=== PATIENT | female | born 1940 | race Two or more races ===

== ENCOUNTER → 2017-03-18 | Outpatient (CLI) | payer MEDICARE, MEDICAID ==
--- NOTE | 2017-03-18 13:49 | Diagnostic Imaging Report ---
Indication: Pain 3 views of the left knee were obtained. Findings: There is evidence of a joint effusion with distention and opacification of the suprapatellar region. There is moderate to severe osteoarthritis characterized by joint space narrowing and osteophyte formation. There is no acute fracture identified. Extensive vascular calcifications are noted. Chondrocalcinosis noted. Impression: No acute injury identified Moderate to severe osteoarthritis Joint effusion Vascular disease
== END | disposition home or self-care (01) ==
LOC: RAD 13:11
DX: M25.562 Pain in left knee (principal); M17.12 Unilateral primary osteoarthritis, left knee; I99.9 Unspecified disorder of circulatory system; M25.462 Effusion, left knee

== ENCOUNTER 2017-10-04 08:47 | Outpatient (CLI) | payer MEDICARE, MEDICAID ==
[2017-10-04] MEDS ORDERED: METOPROLOL SUCC25 MG ORAL (10:05)
[2017-10-04] MEDS ORDERED: AMLODIPINE BESY10 MG ORAL (10:05)
[2017-10-04] MEDS ORDERED: NORCO 5-325 TA1 EAC1 ORAL (10:05)
[2017-10-04] MEDS ORDERED: VITAMIN C500 M1 ORAL (10:05)
[2017-10-04] MEDS ORDERED: ALLOPURINOL300 M1 ORAL (10:05)
[2017-10-04] MEDS ORDERED: TYLENOL EXTRA500 MG ORAL (10:05)
[2017-10-04] MEDS ORDERED: XARELTO10 MG ORAL (10:05)
[2017-10-04] MEDS ORDERED: D3-5050000 UNIT PO (10:05)
[2017-10-04] MEDS ORDERED: JANUMET 50-1,01 EACH ORAL (10:05)
[2017-10-04] MEDS ORDERED: CALCIUM600 M1 PO (10:05)
[2017-10-04] MEDS ORDERED: ANASTROZOLE1 MG PO (10:05)
[2017-10-04] MEDS ORDERED: BENAZEPRIL HCL40 MG ORAL (10:05)
--- NOTE | 2017-10-04 10:05 | GI Initial Consult Note ---
Santacruz,Camilla Cheng N.PFredis 10/04/17 1005: History of Present Illness General Date patient seen: Oct 04, 2017 Time patient seen: 10:00 Referring physician: ZUNILDA Reason for Consultation: RECTAL BLEED Present Illness HPI Pleasant 76 year old female patient referred by Dr. Hodge BIB by son for evaluation of rectal bleeding. She presents today with c/o tinges of bright red blood after wiping herself, believe it may possibly be hemorrhoidal. In addition, the patient has frequent urination throughout the day. Denies any abdominal pain. Denies any unintentional weight loss or changes in dietary habits. Patient uses walker and is fall risk. Unsure if she's had a colonoscopy in the past. Home Meds Reported Medications Acetaminophen* (TYLENOL EXTRA STRENGTH*) 500 Mg Tablet, 500 MG ORAL Q6H Y, TAB 0 Refills 10/04/17 Hydrocodone Bit/Acetaminophen 5-325* (NORCO 5-325 TABLET*) 1 Each Tablet, 1 TAB ORAL Q4H Y, TAB 10/04/17 Ascorbic Acid* (VITAMIN C*) 500 Mg Tablet, 500 MG ORAL DAILY, #30 TAB 0 Refills 10/04/17 Cholecalciferol (Vitamin D3) (D3-50) 50,000 Unit Capsule, 32115 UNIT PO, CAP 10/04/17 Calcium Carbonate (CALCIUM) 600 Mg Tablet, 600 MG PO, TAB 10/04/17 Allopurinol* (ALLOPURINOL*) 300 Mg Tablet, 300 MG ORAL DAILY, TAB 10/04/17 Rivaroxaban (XARELTO*) 10 Mg Tablet, 10 MG ORAL DAILY, #30 TAB 0 Refills 10/04/17 Metoprolol Succinate* (METOPROLOL SUCCINATE*) 25 Mg Tab.er.24h, 25 MG ORAL DAILY , TAB 10/04/17 Benazepril Hcl* (BENAZEPRIL HCL*) 40 Mg Tablet, 40 MG ORAL DAILY, TAB 10/04/17 Amlodipine Besylate* (AMLODIPINE BESYLATE*) 10 Mg Tablet, 10 MG ORAL DAILY, TAB 10/04/17 Sitagliptin Phos/Metformin Hcl (JANUMET 50-1,000 MG TABLET) 1 Each Tablet, 1 TAB ORAL TWICE A DAY, TAB 10/04/17 Anastrozole* (ARIMIDEX*) 1 Mg Tablet, 1 MG PO DAILY, TAB 10/04/17 Med list reviewed/reconciled: Yes Allergies: Coded Allergies: PENICILLINS (Verified Allergy, Unknown, 01/10/11) Patient History History Provided By: Patient, Family Member PMH Narrative DM Hx of R breast CA with mastectomy HTN GOUT ?Lung mass with biopsy ?DVT Pertinent Family History: none Social History: Reports: other - coffee weekly, Denies: smoking, alcohol use, drug use Review of Systems All Other Systems: negative except mentioned in HPI Physical Exam T 98.3 BP 127/63 P 66 96 RA Sp02 EP Interpretation: reviewed, normal General Appearance: well appearing, no apparent distress, alert, thin Head: normocephalic EENT: PERRL/EOMI, normal ENT inspection Neck: supple Respiratory: normal breath sounds, no respiratory distress Cardiovascular: normal rate Gastrointestinal: normal inspection, non tender, soft, normal bowel sounds, non -distended Rectal: deferred Genitourinary: no CVA tenderness Musculoskeletal: normal inspection, back normal, other - general weakness Neurologic: normal inspection, alert, oriented x3, responsive Psychiatric: normal inspection, judgement/insight normal, memory normal Skin: normal inspection, normal color, no rash, warm/dry, palpation normal, well hydrated Lymphatic: normal inspection, no adenopathy GI: Plan Problems: (1) Colonoscopy planned (2) Bleeding hemorrhoid (3) Diabetes mellitus (4) HX: breast cancer (5) HTN (hypertension) Plan Colonoscopy scheduled 11/24/17. - CLD & (Nulytely/Suprep/Movi-Prep) prep instructions given and acknowledged by patient. - NPO @ MN day prior procedure explained. Rectal exam performed >> external hemorrhoids. decrease in rectal tone. cont anusol HC prn Seen with Dr. Sanders. Thank you for this patient referral. ARIAN SANDERS 10/04/17 1140: History of Present Illness Present Illness Home Meds Reported Medications Acetaminophen* (TYLENOL EXTRA STRENGTH*) 500 Mg Tablet, 500 MG ORAL Q6H Y, TAB 0 Refills 10/04/17 Hydrocodone Bit/Acetaminophen 5-325* (NORCO 5-325 TABLET*) 1 Each Tablet, 1 TAB ORAL Q4H Y, TAB 10/04/17 Ascorbic Acid* (VITAMIN C*) 500 Mg Tablet, 500 MG ORAL DAILY, #30 TAB 0 Refills 10/04/17 Cholecalciferol (Vitamin D3) (D3-50) 50,000 Unit Capsule, 03048 UNIT PO, CAP 10/04/17 Calcium Carbonate (CALCIUM) 600 Mg Tablet, 600 MG PO, TAB 10/04/17 Allopurinol* (ALLOPURINOL*) 300 Mg Tablet, 300 MG ORAL DAILY, TAB 10/04/17 Rivaroxaban (XARELTO*) 10 Mg Tablet, 10 MG ORAL DAILY, #30 TAB 0 Refills 10/04/17 Metoprolol Succinate* (METOPROLOL SUCCINATE*) 25 Mg Tab.er.24h, 25 MG ORAL DAILY , TAB 10/04/17 Benazepril Hcl* (BENAZEPRIL HCL*) 40 Mg Tablet, 40 MG ORAL DAILY, TAB 10/04/17 Amlodipine Besylate* (AMLODIPINE BESYLATE*) 10 Mg Tablet, 10 MG ORAL DAILY, TAB 10/04/17 Sitagliptin Phos/Metformin Hcl (JANUMET 50-1,000 MG TABLET) 1 Each Tablet, 1 TAB ORAL TWICE A DAY, TAB 10/04/17 Anastrozole* (ARIMIDEX*) 1 Mg Tablet, 1 MG PO DAILY, TAB 10/04/17 Allergies: Coded Allergies: PENICILLINS (Verified Allergy, Unknown, 01/10/11) GI: Plan Plan The patient was seen and examined at bedside and all new and available data was reviewed in the patients chart. I agree with the above findings, impression and plan. (Patient seen earlier today. Signature stamp does not reflect patient encounter time.). - MD [facility] Cheng Yañez Oct 04, 2017 10:05 ARIAN SANDERS Oct 04, 2017 11:40
[2017-10-04 11:35] VITALS: BP 127/63
== END 2017-10-04 09:30 | disposition home or self-care (01) ==
LOC: PAN 08:47
DX: K64.9 Unspecified hemorrhoids (principal); Z88.0 Allergy status to penicillin; E11.9 Type 2 diabetes mellitus without complications; Z85.3 Personal history of malignant neoplasm of breast; Z90.11 Acquired absence of right breast and nipple; I10 Essential (primary) hypertension
CPT/HCPCS: 99202

== ENCOUNTER 2017-10-24 08:15 | Day surgery (SDC) | payer MEDICARE, MEDICAID ==
[~2017-10-24] VITALS: Ht 152.4 cm; Wt 54.0 kg
[2017-10-24] VITALS (7 sets, daily range): BP systolic 102–123; BP diastolic 46–64
[~2017-10-24 08:15] MED LIST: ALLOPURINOL300 M1 ORAL; AMLODIPINE BESY10 MG ORAL; ANASTROZOLE1 MG PO; BENAZEPRIL HCL40 MG ORAL; CALCIUM600 M1 PO; D3-5050000 UNIT PO; JANUMET 50-1,01 EACH ORAL; METOPROLOL SUCC25 MG ORAL; NORCO 5-325 TA1 EAC1 ORAL; TYLENOL EXTRA500 MG ORAL; VITAMIN C500 M1 ORAL; XARELTO10 MG ORAL
--- NOTE | 2017-10-24 08:50 | Pre-Procedure Note/Attestation ---
Pre-Procedure Note/Attestation Complete Prior to Procedure Planned Procedure: not applicable Procedure Narrative: colonoscopy Indications for Procedure Pre-Operative Diagnosis: rectal bleed Attestation I attest that I discussed the nature of the procedure; its benefits; risks and complications; and alternatives (and the risks and benefits of such alternatives ), prior to the procedure, with the patient (or the patient's legal business development representative). I attest that, if there was a reasonable possibility of needing a blood transfusion, the patient (or the patient's legal business development representative) was given the [facility] standardized written summary, pursuant to the Mariano Christine Blood Safety Act ([place] Health and Safety Code # 1645, as amended). I attest that I re-evaluated the patient just prior to the surgery and that there has been no change in the patient's H&P, except as documented below: ARIAN SANDERS Oct 24, 2017 08:50
--- NOTE | 2017-10-24 08:50 | Short Stay Surgery H&P ---
History of Present Illness History of Present Illness Chief Complaint see recent consult HPI Ziyad Thacker is a 76 year old female who was admitted on for Rectal Bleeding Patient History Allergies: Coded Allergies: PENICILLINS (Verified Allergy, Unknown, 01/10/11) PAST MEDICAL HISTORY: Past Surgeries: Social History: Medication History Scheduled Allopurinol* (Allopurinol*), 300 MG ORAL DAILY, (Reported) Amlodipine Besylate* (Amlodipine Besylate*), 10 MG ORAL DAILY, (Reported) Anastrozole* (Arimidex*), 1 MG PO DAILY, (Reported) Ascorbic Acid* (Vitamin C*), 500 MG ORAL DAILY, (Reported) Benazepril Hcl* (Benazepril Hcl*), 40 MG ORAL DAILY, (Reported) Metoprolol Succinate* (Metoprolol Succinate*), 25 MG ORAL DAILY, (Reported) Rivaroxaban (Xarelto*), 15 MG ORAL DAILY, (Reported) Sitagliptin Phos/Metformin Hcl (Janumet 50-1,000 Mg Tablet), 1 TAB ORAL TWICE A DAY, (Reported) Scheduled PRN Acetaminophen* (Tylenol Extra Strength*), 500 MG ORAL Q6H PRN, (Reported) Hydrocodone Bit/Acetaminophen 5-325* ([place] 5-325 Tablet*), 1 TAB ORAL Q4H PRN, (Reported) Miscellaneous Medications Calcium Carbonate (Calcium), 600 MG PO, (Reported) Cholecalciferol (Vitamin D3) (D3-50), 50,000 UNIT PO, (Reported) Plan Attestation Are the patient's medical conditions optimized for surgery? ARIAN SANDERS Oct 24, 2017 08:50
[2017-10-24] MEDS ORDERED: Lidocaine 1% MPF 10mg/ml 5ml ONE (10:00)
[2017-10-24] MEDS ORDERED: Propofol 200mg/20ml IV ONE (10:00)
--- NOTE | 2017-10-24 10:26 | Anethesia Preoperative Eval ---
Anesthesia Pre-op PMH/ROS General Date of Evaluation: Oct 24, 2017 Time of Evaluation: 10:12 Anesthesiologist: daya ASA Score: ASA 3 Mallampati Score Class I : Soft palate, uvula, fauces, pillars visible Class II: Soft palate, uvula, fauces visible Class III: Soft palate, base of uvula visible Class IV: Only hard plate visible Mallampati Classification: Class II Surgeon: franky Diagnosis: rectal bleed Surgical Procedure: colonoscopy Anesthesia History: none Social History: alcohol use Family History: no anesthesia problems Allergies: Coded Allergies: PENICILLINS (Verified Allergy, Unknown, 01/10/11) Medications: see eMAR Past Medical History Cardiovascular: Reports: HTN, arrhythmia Gastrointestinal/Genitourinary: Reports: other - rectal bleed Endocrine: Reports: DM Hematology/Immune: Reports: other - breast cancer Musculoskeletal/Integumentary: Reports: other - gout Anesthesia Pre-op Phys. Exam Physician Exam Last Vital Signs Date Time Temp Pulse Resp B/P (MAP) Pulse Ox O2 Delivery O2 Flow Rate FiO2 10/24/17 09:43 97.6 73 18 122/58 96 Room Air Constitutional: NAD Neurologic: CN 2-12 intact Cardiovascular: other - irreg irreg Respiratory: CTA Gastrointestinal: S/NT/ND Airway Exam Mallampati Score: Class II MO: full Neck: supple TMD: 2fb ROM: limited Teeth: missing Dentures: upper, lower Anesthesia Pre-op A/P Studies Pre-op Studies: EKG - a-fib, lad lbbb Risk Assessment & Plan Assessment: asa3 Plan: mac Status Change Before Surgery: No Pre-Antibiotics Drug: MOSHE Gay Oct 24, 2017 10:26
[2017-10-24] MEDS ORDERED: fentaNYL 100 mcg/2 mL IV PRN (10:30)
[2017-10-24] MEDS ORDERED: DiphenhydrAMINE 50mg/ml Inj IVP PRN (10:30)
[2017-10-24] MEDS ORDERED: Midazolam 2mg/2ml Inj IVP PRN (10:30)
[2017-10-24] MEDS ORDERED: Atropine Inj 1mg/10ml Syr IV PRN (10:30)
--- NOTE | 2017-10-24 10:49 | Endoscopy Procedure Note ---
Endoscopy Procedure Note Indication for Procedure: diarrhea Procedures Performed: colonoscopy Operative Findings/Diagnosis: hemorrhoids Specimen: yes Anesthesiologist: giuliana Anesthesia: MAC Implant(s) used?: No 50 yrs or older w/o bx or poly: No 10yrs. F/U not recommended: Yes If not recommended, why?: Above average risk 10 yrs. F/U needed: Yes 18 years or older w/prev. colo: No ARIAN SANDERS Oct 24, 2017 10:49
--- NOTE | 2017-10-24 11:54 | Immediate Post-Op Evaluation ---
Immediate Post-Op Evalulation Immediate Post-Op Evalulation Procedure: colonoscopy Date of Evaluation: Oct 24, 2017 Time of Evaluation: 11:06 IV Fluids: 250ml 0.9ns Blood Products: none Estimated Blood Loss: negligible Blood Pressure Systolic: 105 Blood Pressure Diastolic: 46 Pulse Rate: 60 Respiratory Rate: 18 O2 Sat by Pulse Oximetry: 100 Temperature (Fahrenheit): 97.2 Pain Score (1-10): 0 Nausea: No Vomiting: No Complications none Patient Status: awake, reacts, patent Hydration Status: adequate Drug: MOSHE Gay Oct 24, 2017 11:54
--- NOTE | 2017-10-24 11:55 | 48 Hour Post Anesthesia Eval ---
Post Anesthesia Evaluation Procedure: colonoscopy Date of Evaluation: Oct 24, 2017 Time of Evaluation: 11:08 Blood Pressure Systolic: 111 0: 50 Pulse Rate: 66 Respiratory Rate: 18 Temperature (Fahrenheit): 97.2 O2 Sat by Pulse Oximetry: 99 Airway: patent Nausea: No Vomiting: No Pain Intensity: 0 Hydration Status: adequate Cardiopulmonary Status: stable Mental Status/LOC: patient returned to baseline Post-Anesthesia Complications: none Follow-up care needed: N/A MOSHE SALAZAR Oct 24, 2017 11:55
--- NOTE | 2017-10-24 15:30 | Procedure Note ---
DATE OF PROCEDURE: 10/24/2017 SURGEON: Avelino Tovar M.D. PROCEDURE: Colonoscopy with biopsy. ANESTHESIOLOGIST: Sarahi Hanson M.D. INSTRUMENT: Olympus adult flexible colonoscope. INDICATION: Diarrhea. REASON FOR PROCEDURE: The procedure, risks, benefits, and possible consequences, including hemorrhage, aspiration, perforation and infection, and alternative treatments, were explained to the patient/legal guardian by Dr. Avelino Tovar and the patient/legal guardian understood and accepted these risks. DESCRIPTION OF PROCEDURE: After informed consent was obtained and the patient was adequately sedated, first rectal exam was performed, which showed positive for internal hemorrhoids. Then, the scope was advanced from the rectum into the cecum and then subsequently into the terminal ileum. Quality of prep was good. The colonic examination was grossly within normal limit. Biopsy from the TI, right colon, and left colon were obtained for evaluation of diarrhea. Retroflexion of rectum showed evidence of internal hemorrhoids. SUMMARY OF FINDINGS: 1. Normal colonoscopy examination except for internal hemorrhoids. 2. Status post biopsy of TI and right and left colon. RECOMMENDATIONS: Follow up biopsy results and treat accordingly. Avelino Tovar M.D. DR: DEJUAN JOB#: [id number] CC:
== END 2017-10-24 12:25 | disposition home or self-care (01) ==
LOC: GAS 08:15
DX: K64.8 Other hemorrhoids (principal); K52.831 Collagenous colitis; Z88.0 Allergy status to penicillin; I10 Essential (primary) hypertension; E11.9 Type 2 diabetes mellitus without complications; Z85.3 Personal history of malignant neoplasm of breast; I48.91 Unspecified atrial fibrillation; I44.7 Left bundle-branch block, unspecified
CPT/HCPCS: 45380; 82962; 93005; J2704; 94003; 94150

== ENCOUNTER 2017-11-10 13:20 | Outpatient (CLI) | payer MEDICARE, MEDICAID ==
--- NOTE | 2017-11-10 16:18 | GI Progress Note ---
Assessment/Plan Problems: (1) Colonoscopy planned SNOMED: 127379288 (2) HTN (hypertension) ICD Codes: I10 - Essential (primary) hypertension SNOMED: 47137481 (3) Diabetes mellitus ICD Codes: E11.9 - Type 2 diabetes mellitus without complications SNOMED: 64269546 (4) Bleeding hemorrhoid ICD Codes: K64.9 - Unspecified hemorrhoids SNOMED: 03661219 (5) Colitis ICD Codes: K52.9 - Noninfective gastroenteritis and colitis, unspecified SNOMED: 95711325 Status: stable Status Narrative Seen with Dr. Tovar. Assessment/Plan DATE OF PROCEDURE: 10/24/2017 SURGEON: Avelino Tovar M.D. PROCEDURE: Colonoscopy with biopsy. SUMMARY OF FINDINGS reviewed with patient: 1. Normal colonoscopy examination except for internal hemorrhoids. 2. Status post biopsy of TI and right and left colon. RECOMMENDATIONS: Follow up biopsy results and treat accordingly >> R colon colitis Rx Entocort 9mg daily RTC x 8 weeks Subjective Subjective continues to have diarrhea colonoscopy review Objective T 98.4 BP 132/60 P 79 98 RA General Appearance: WD/WN, no apparent distress, alert Cardiovascular: normal rate Respiratory/Chest: normal breath sounds, no respiratory distress Abdominal Exam: normal bowel sounds, non tender, soft Extremities: normal range of motion, non-tender Camilla Santacruz N.P. Nov 10, 2017 16:18
== END 2017-11-10 13:55 | disposition home or self-care (01) ==
LOC: PAN 13:20
DX: K52.9 Noninfective gastroenteritis and colitis, unspecified (principal); I10 Essential (primary) hypertension; E11.9 Type 2 diabetes mellitus without complications; K64.9 Unspecified hemorrhoids; R19.7 Diarrhea, unspecified
CPT/HCPCS: 99212

== ENCOUNTER 2017-12-08 14:58 | Outpatient (CLI) | payer MEDICARE, MEDICAID ==
--- NOTE | 2017-12-08 16:46 | Diagnostic Imaging Report ---
Indication: Reason For Exam: COUGH Technique: 2 views of the chest Comparison: 01/10/2011 single view chest Findings: The heart is borderline enlarged. There is equivocal slight blunting of the left lateral costophrenic sulcus, not corroborated on the lateral view. The lungs and pleural spaces are otherwise clear. There are degenerative changes of the thoracic spine Impression: Borderline cardiomegaly No definite acute process
== END 2017-12-08 16:58 | disposition home or self-care (01) ==
LOC: RAD 14:58
DX: R05 Cough (principal); R07.9 Chest pain, unspecified
CPT/HCPCS: 71046

== ENCOUNTER 2017-12-20 08:56 | Outpatient (CLI) | payer MEDICARE, MEDICAID ==
--- NOTE | 2017-12-20 09:51 | GI Progress Note ---
Assessment/Plan Problems: (1) Colitis ICD Codes: K52.9 - Noninfective gastroenteritis and colitis, unspecified SNOMED: 40890859 (2) Diabetes mellitus ICD Codes: E11.9 - Type 2 diabetes mellitus without complications SNOMED: 57634950 (3) Bleeding hemorrhoid ICD Codes: K64.9 - Unspecified hemorrhoids SNOMED: 92982287 Status: doing well, stable Status Narrative Seen with Dr. Tovar. Assessment/Plan DATE OF PROCEDURE: 10/24/2017 SURGEON: Avelino Tovar M.D. PROCEDURE: Colonoscopy with biopsy. SUMMARY OF FINDINGS reviewed with patient: 1. Normal colonoscopy examination except for internal hemorrhoids. 2. Status post biopsy of TI and right and left colon. RECOMMENDATIONS: complete Entocort 9mg course of tx - avoid NSAIDs, diary products RTC prn The patient was seen and examined at bedside and all new and available data was reviewed in the patients chart. I agree with the above findings, impression and plan. (Patient seen earlier today. Signature stamp does not reflect patient encounter time.). - Josefa Tovar MD Subjective Subjective diarrhea resolved occasional rectal pressure Objective T 98.3 BP 151/73 P 72 95 RA Denies any unintentional weight loss or changes in dietary habits. (116 lbs) General Appearance: WD/WN, no apparent distress, alert Cardiovascular: normal rate Respiratory/Chest: normal breath sounds, no respiratory distress Abdominal Exam: normal bowel sounds, non tender, soft Extremities: normal range of motion - with walker, non-tender Camilla Santacruz N.P. Dec 20, 2017 09:50 AVELINO TOVAR Dec 21, 2017 09:04
== END 2017-12-20 09:29 | disposition home or self-care (01) ==
LOC: PAN 08:56
DX: K52.9 Noninfective gastroenteritis and colitis, unspecified (principal); E11.9 Type 2 diabetes mellitus without complications; K64.9 Unspecified hemorrhoids
CPT/HCPCS: 99212

== ENCOUNTER 2018-02-09 12:57 | Outpatient (CLI) | payer MEDICARE, MEDICAID ==
[2018-02-09 13:15] VITALS: BP 132/64
--- NOTE | 2018-02-09 14:19 | GI Progress Note ---
Assessment/Plan Problems: (1) Colitis ICD Codes: K52.9 - Noninfective gastroenteritis and colitis, unspecified SNOMED: 60655953 Status: stable Status Narrative Seen with Dr. Tovar. Assessment/Plan DATE OF PROCEDURE: 10/24/2017 SURGEON: Avelino Tovar M.D. PROCEDURE: Colonoscopy with biopsy. SUMMARY OF FINDINGS reviewed with patient: 1. Normal colonoscopy examination except for internal hemorrhoids. 2. Status post biopsy of TI and right and left colon. RECOMMENDATIONS: continue Entocort RTC x 2 months Subjective Subjective abdominal pain diarrhea x 10 days, denies heme had taken Entocort prior and resolved issue. Objective T 98.2 BP 132/64 P 69 100 RA General Appearance: WD/WN, no apparent distress, alert Cardiovascular: normal rate Respiratory/Chest: normal breath sounds, no respiratory distress Abdominal Exam: normal bowel sounds, non tender, soft Extremities: normal range of motion, non-tender Camilla Santacruz N.P. Feb 09, 2018 14:19
== END 2018-02-09 13:30 | disposition home or self-care (01) ==
LOC: PAN 12:57
DX: K52.9 Noninfective gastroenteritis and colitis, unspecified (principal)
CPT/HCPCS: 99212

== ENCOUNTER 2019-04-26 13:38 | Outpatient (CLI) | payer MEDICARE, MEDICAID ==
--- NOTE | 2019-04-26 14:00 | General Progress Note ---
Assessment/Plan Problem List: (1) Colitis ICD Codes: K52.9 - Noninfective gastroenteritis and colitis, unspecified SNOMED: 99662052 (2) Bleeding hemorrhoid ICD Codes: K64.9 - Unspecified hemorrhoids SNOMED: 93504506 (3) Diabetes mellitus ICD Codes: E11.9 - Type 2 diabetes mellitus without complications SNOMED: 48634572 (4) HTN (hypertension) ICD Codes: I10 - Essential (primary) hypertension SNOMED: 70915095 (5) HX: breast cancer ICD Codes: Z85.3 - Personal history of malignant neoplasm of breast SNOMED: 854085167 Assessment/Plan: no new meds reassurance fu prn repeat colon in 5 years from the last one Subjective ROS Limited/Unobtainable: Yes Allergies: Coded Allergies: PENICILLINS (Verified Allergy, Unknown, 01/10/11) Objective General Appearance: alert EENT: normal ENT inspection Neck: supple Cardiovascular: normal rate Respiratory/Chest: decreased breath sounds Abdomen: normal bowel sounds, non tender, soft Extremities: non-tender Avelino Tovar MD Apr 26, 2019 14:00
== END 2019-04-26 16:05 | disposition home or self-care (01) ==
LOC: PAN 13:38
DX: K52.9 Noninfective gastroenteritis and colitis, unspecified (principal); K64.9 Unspecified hemorrhoids; E11.9 Type 2 diabetes mellitus without complications; I10 Essential (primary) hypertension; Z85.3 Personal history of malignant neoplasm of breast; Z88.0 Allergy status to penicillin

== ENCOUNTER 2020-01-08 05:34 | Day surgery (SDC) | payer MEDICARE, MEDICAID ==
[~2020-01-08] VITALS: Ht 152.4 cm; Wt 54.4 kg
[2020-01-08] VITALS (10 sets, daily range): BP systolic 108–139; BP diastolic 52–68
[2020-01-08] MEDS ORDERED: VITAMIN B122500 MCG PO (06:44)
[2020-01-08] MEDS ORDERED: FERROUS SULFAT325 MG ORAL (06:44)
[2020-01-08] MEDS ORDERED: KLOR-CON 88 MEQ ORAL (06:44)
[2020-01-08] MEDS ORDERED: Midazolam 2mg/2ml Inj ONE (07:03)
[2020-01-08] MEDS ORDERED: fentaNYL 100 mcg/2 mL IV ONE (07:03)
[2020-01-08] MEDS ORDERED: LR 1000ml 1,000 ML IVLG SCH (07:06)
[2020-01-08] MEDS ORDERED: Bacitracin 50000 Units Vial ONE (07:09)
--- NOTE | 2020-01-08 07:11 | Anethesia Preoperative Eval ---
Anesthesia Pre-op PMH/ROS General Date of Evaluation: Jan 08, 2020 Time of Evaluation: 07:24 Anesthesiologist: Khadijah ASA Score: ASA 3 Mallampati Score Class I : Soft palate, uvula, fauces, pillars visible Class II: Soft palate, uvula, fauces visible Class III: Soft palate, base of uvula visible Class IV: Only hard plate visible Mallampati Classification: Class II Surgeon: Raymond Diagnosis: R Inguinal Hernia Surgical Procedure: R Inguinal Hernia Repair with Mesh Anesthesia History: none Family History: no anesthesia problems Allergies: Coded Allergies: PENICILLINS (Verified Allergy, Unknown, 01/10/11) Medications: see eMAR Patient NPO?: Yes Past Medical History Cardiovascular: Reports: HTN Pulmonary: Reports: other - Lung Issue Endocrine: Reports: DM Hematology/Immune: Reports: other - R Breast CA Musculoskeletal/Integumentary: Reports: other - Gout PSxH Narrative: Lung Sx, R Breast Mastectomy Anesthesia Pre-op Phys. Exam Physician Exam Last Vital Signs Date Time Temp Pulse Resp B/P (MAP) Pulse Ox O2 Delivery O2 Flow Rate FiO2 01/08/20 06:36 Room Air 01/08/20 06:33 97.9 61 18 139/68 100 Constitutional: NAD Neurologic: CN 2-12 intact Cardiovascular: RRR Respiratory: CTA Gastrointestinal: S/NT/ND Airway Exam Mallampati Score: Class II MO: full ROM: limited Teeth: missing, intact Anesthesia Pre-op A/P Studies Pre-op Studies: EKG - AFib, RAD Risk Assessment & Plan Assessment: ASA 3 Plan: GA, SED, GlideScope Go Status Change Before Surgery: No Pre-Antibiotics Dru Gram Ancef IV Given Within 1 Hr of Incision: Yes Time Given: 07:46 Panchito Lucio MD Jan 08, 2020 07:11
[2020-01-08] MEDS ORDERED: Lidocaine 1% MPF 10mg/ml 5ml ONE (07:12)
[2020-01-08] MEDS ORDERED: Sodium Chloride 10ml vial INJ ONE (07:12)
[2020-01-08] MEDS ORDERED: Propofol 200mg/20ml IV ONE ×2 (07:12→07:30)
[2020-01-08] MEDS ORDERED: Hydromorphone 0.5mg/0.5ml inj IVP PRN (07:15)
[2020-01-08] MEDS ORDERED: LORazepam Inj 2mg/ml 1ml IV PRN (07:15)
[2020-01-08] MEDS ORDERED: Acetaminophen (Non formulary) 100 ML IV ONE (07:15)
[2020-01-08] MEDS ORDERED: Meperidine 25mg/0.5ml Inj (FOR RIGORS ONLY) IV PRN (07:15)
[2020-01-08] MEDS ORDERED: Rocuronium Bromide 50mg/5ml Inj IV ONE (07:15)
[2020-01-08] MEDS ORDERED: Atropine Sulfate 0.4mg/ml inj IVP PRN (07:15)
[2020-01-08] MEDS ORDERED: HYDROcodone/Acetamin 5/325 tab ORAL PRN ×2 (07:15→10:30)
[2020-01-08] MEDS ORDERED: Metoclopramide 10mg/2ml Inj IVP PRN (07:15)
[2020-01-08] MEDS ORDERED: Labetalol 5mg/ml 20ml vial IV PRN (07:15)
[2020-01-08] MEDS ORDERED: Ketorolac 30mg Inj IV PRN ×2 (07:15)
[2020-01-08] MEDS ORDERED: DiphenhydrAMINE 50mg/ml Inj IVP PRN (07:15)
[2020-01-08] MEDS ORDERED: fentaNYL 100 mcg/2 mL IV PRN (07:15)
[2020-01-08] MEDS ORDERED: Midazolam 2mg/2ml Inj IVP PRN (07:15)
[2020-01-08] MEDS ORDERED: HYDROcodone/Acetamin 7.5/325 tab ORAL PRN (07:15)
[2020-01-08] MEDS ORDERED: oxyCODONE HCL/Acetaminophen 5/325mg ORAL PRN (07:15)
[2020-01-08] MEDS ORDERED: NS Irrig 1000ml IRRIG ONE ×2 (07:19→08:11)
--- NOTE | 2020-01-08 07:22 | Pre-Procedure Note/Attestation ---
Pre-Procedure Note/Attestation Complete Prior to Procedure Planned Procedure: right Procedure Narrative: Right Inguinal hernia repair with mesh Indications for Procedure Pre-Operative Diagnosis: right inguinal hernia Attestation I attest that I discussed the nature of the procedure; its benefits; risks and complications; and alternatives (and the risks and benefits of such alternatives ), prior to the procedure, with the patient (or the patient's legal residential sales representative). I attest that, if there was a reasonable possibility of needing a blood transfusion, the patient (or the patient's legal residential sales representative) was given the [facility] standardized written summary, pursuant to the Mariano [place] Blood Safety Act ([place] Health and Safety Code # 1645, as amended). I attest that I re-evaluated the patient just prior to the surgery and that there has been no change in the patient's H&P, except as documented below: Sarmad Andrade Jan 08, 2020 07:22
[2020-01-08] MEDS ORDERED: Sterile Water Irrig 1000ml IRRIG ONE (07:30)
[2020-01-08] MEDS ORDERED: Clindamycin 600mg 50 ML IV ONE ×2 (07:30→08:14)
[2020-01-08] MEDS ORDERED: LR 1000ml ONE (07:30)
[2020-01-08] MEDS ORDERED: Neostigmine 1mg/ml 10ml Inj ONE (07:30)
--- NOTE | 2020-01-08 07:43 | Immediate Post-Op Evaluation ---
Immediate Post-Op Evalulation Immediate Post-Op Evalulation Procedure: R Inguinal Hernia Repair with Mesh Date of Evaluation: Jan 08, 2020 Time of Evaluation: 09:30 IV Fluids: 700 LR Blood Products: 0 Estimated Blood Loss: 10 Urinary Output: 0 Blood Pressure Systolic: 108 Blood Pressure Diastolic: 54 Pulse Rate: 59 Respiratory Rate: 16 O2 Sat by Pulse Oximetry: 100 Temperature (Fahrenheit): 97.4 Pain Score (1-10): 2 Nausea: No Vomiting: No Complications 0 Patient Status: awake, reacts, patent, none Hydration Status: adequate Dru Gram Ancef IV Given Within 1 Hr of Incision: Yes Time Given: 07:46 Panchito Lucio MD Jan 08, 2020 07:43
[2020-01-08] MEDS ORDERED: Glycopyrrolate 0.2mg/ml 1ml Vial ONE ×3 (08:03→08:56)
--- NOTE | 2020-01-08 09:18 | 48 Hour Post Anesthesia Eval ---
Post Anesthesia Evaluation Procedure: R Inguinal Hernia Repair with Mesh Date of Evaluation: Jan 08, 2020 Time of Evaluation: 11:34 Blood Pressure Systolic: 128 0: 72 Pulse Rate: 58 Respiratory Rate: 18 Temperature (Fahrenheit): 97.6 O2 Sat by Pulse Oximetry: 100 Airway: patent Nausea: No Vomiting: No Pain Intensity: 2 Hydration Status: adequate Cardiopulmonary Status: Stable Mental Status/LOC: patient returned to baseline Follow-up Care/Observations: 0 Post-Anesthesia Complications: 0 Follow-up care needed: ready to discharge Panchito Lucio MD Jan 08, 2020 09:18
--- NOTE | 2020-01-08 10:21 | Brief Operative Note ---
Immediate Post Operative Note Operative Note Pre-op Diagnosis: right inguinal hernia Procedure: Right inguinal hernia repair with mesh Post-op Diagnosis: Large right inguinal indirect hernia Surgeon: Sramad Andrade MD Anesthesiologist: Panchito Lucio MD Anesthesia: general, local Specimen: yes Complications: none Condition: stable Fluids: See records Estimated Blood Loss: minimal Drains: none Implant(s) used?: Yes Sarmad Andrade Jan 08, 2020 10:21
[2020-01-08] MEDS ORDERED: Tylenol #3 tab (300mg/30mg) ORAL PRN (10:30)
[2020-01-08] MEDS ORDERED: HYDROmorphone 1mg/ml Carpuject SUBQ PRN (10:30)
[2020-01-08] MEDS ORDERED: D5 1/2NS 1,000 ML IV SCH (15:00)
--- NOTE | 2020-01-08 23:30 | Operative Note - Dictated ---
DATE OF OPERATION: 01/08/2020 PREOPERATIVE DIAGNOSIS: Large right inguinal hernia, reducible. POSTOPERATIVE DIAGNOSIS: Large right indirect inguinal hernia. OPERATION PERFORMED: Right inguinal hernia repair with mesh, open. ATTENDING SURGEON: Sarmad Andrade M.D. MEDICAL DEVICE SALES REPRESENTATIVE: None. ANESTHESIOLOGIST: Panchito Lucio M.D. ANESTHESIA: General STILL OPERATOR GIN plus local. ESTIMATED BLOOD LOSS: Minimal. IV FLUIDS: Please see anesthesia records. COMPLICATIONS: None. DRAINS: None. COUNTS: Sponge and needle count correct x2. WOUND CLASSIFICATION: Class 1. ANTIBIOTICS: Clindamycin 600 mg IV given one hour prior to cut time given the patient's penicillin allergy. IMPLANTS: Bard mesh PreFix plug and patch, reference [id number], lot [id number], date of expiration 03/11/2024. INDICATIONS FOR PROCEDURE: This is a 79-year-old female, who was referred to me by her primary care physician Dr. Nestor Hodge, after being identified to have a large symptomatic right inguinal hernia. The patient was evaluated in the office with her son present, who is her durable power of title attorney and care provider. In identifying the patient preoperatively in the office, she was noted to have a large reducible symptomatic right inguinal hernia with a ring that is 2 cm wide opening with small intestines noted to be easily identified within the hernia sac given the patient's lean body habitus. The patient is 79 years old with multiple medical comorbidities and I had a long discussion with the patient and her son at the office in regard to her hernia, these findings, the duration, the location, the possible risks, benefits, and alternatives to surgical intervention such as nonoperative observation. After having this long conversation and discussing all the potential options as well as surgical options including laparoscopic open mesh or non-mesh placement, the patient and her son discussed this and had discussion about it and given her prior wishes, current wishes, she would like to proceed with surgical intervention. The patient and her family believe that she has a significant amount of time to live and understand that will not get younger and would prefer to have all interventions as soon as possible if any potential for harm can be identified from her current findings. During evaluation, she does have risk for an incarceration, potential obstruction, and emergency needs and therefore, surgery is indicated and recommended. In discussing surgical options, decision was made to proceed with open right inguinal herniorrhaphy with mesh placement. Consent was obtained. The patient was scheduled for 01/08/2020. Preoperative clearance and assessment was performed by primary care physician. OPERATIVE NOTE: The patient was taken to the operating room, placed on the operating room table supine position bilateral arms out. All bony prominences well padded. SCDs were placed. Preoperative time-out taken identifying the patient, procedure, operative staff, and surgical staff. General anesthesia was induced. The patient was intubated. The right groin was clipped, prepped, draped in standard surgical fashion. Anatomical landmarks were identified. Local anesthetic was infiltrated in the proposed skin incision. A skin incision was made using a fresh #10 scalpel and carried down to the subcutaneous tissue to the Vy's fascia following to the external oblique aponeurosis. External oblique aponeurosis was identified and a large external ring was noted. The external oblique aponeurosis was divided in direction of the fibers and Metzenbaum scissors were used to further open the incision. Great care was then ensured to identify and protect the nerve throughout the procedure. The nerve was identified and protected throughout the entire procedure. The inferior and superior flaps were made of the aponeurosis and a moderate-to large-sized indirect inguinal hernia sac was clearly identifiable. The floor was weak as well, but no significant direct component noted. Given her age and overall condition, the tissues were very lax including the fascia. The hernia sac was gently dissected out and circumferentially along with lipomatous tissue. Following this, the sac was opened and evaluated and a large hernia ring as clearly identified in the office was also noted. Bowel contents were identified. Bowel contents were reduced into their anatomic position and high ligation of the sac was performed using a 2-0 Prolene suture. The sac and lipomatous tissue was excised, divided, and sent to pathology for review after ligated with a Prolene suture. Following this, decision was made to place a plug and PreFix patch Bard, which was brought to the operative table, rinsed, and the plug was customized to size and placed with suturing using 2-0 Prolene to the fascial edges. Following this, the PreFix patch was placed and tied appropriately to size and sutured to the shelving edge of the inguinal ligament using a running 2-0 Prolene suture followed by interrupted sutures to the conjoint tendon. Care was taken to identify the nerve and protected throughout this portion of procedure as well. Following this, the local anesthetic was infiltrated around the pubic tubercle and suture sites and the wound bed was irrigated and cleansed. External oblique aponeurosis was reapproximated using a 3-0 Vicryl suture followed by reapproximation of Vy's fascia using interrupted 3-0 Vicryl sutures. The skin incision was reapproximated using 4-0 Monocryl in a running subcuticular suture. Skin glue and Steri-Strips were applied. The patient tolerated the procedure well, was taken to Postanesthetic Care Unit in stable condition once extubated. No intraoperative or immediate postoperative complications identified. Sarmad Andrade M.D. DR: ZARIA JOB#: [id number] CC: ZAN
== END 2020-01-08 12:00 | disposition home or self-care (01) ==
LOC: SUR 05:34
DX: K40.90 Unilateral inguinal hernia, without obstruction or gangrene, not specified as recurrent (principal); Z88.0 Allergy status to penicillin; E11.9 Type 2 diabetes mellitus without complications; I10 Essential (primary) hypertension; Z90.11 Acquired absence of right breast and nipple; Z85.3 Personal history of malignant neoplasm of breast
CPT/HCPCS: 49505; 82962; C1781; J0131; J0690; J1885; J2250; J2405; J2704; J2710; J3010; J7120; 94003; 94150; S0077

== ENCOUNTER 2020-10-21 10:57 | Outpatient (CLI) | payer MEDICARE, MEDICAID ==
[~2020-10-21 10:57] MED LIST changes: +FERROUS SULFAT325 MG ORAL; +KLOR-CON 88 MEQ ORAL; +VITAMIN B122500 MCG PO
--- NOTE | 2020-10-21 12:16 | General Progress Note ---
Subjective ROS Limited/Unobtainable: Yes Allergies: Coded Allergies: PENICILLINS (Verified Allergy, Unknown, 01/10/11) Objective General Appearance: alert EENT: normal ENT inspection Neck: supple Cardiovascular: normal rate Respiratory/Chest: decreased breath sounds Abdomen: non tender, soft Extremities: non-tender Assessment/Plan Assessment/Plan: Assessment/Plan Problem List: (1) Colitis ICD Codes: K52.9 - Noninfective gastroenteritis and colitis, unspecified SNOMED: 61642697 (2) Bleeding hemorrhoid ICD Codes: K64.9 - Unspecified hemorrhoids SNOMED: 38814960 (3) Diabetes mellitus ICD Codes: E11.9 - Type 2 diabetes mellitus without complications SNOMED: 63715674 (4) HTN (hypertension) ICD Codes: I10 - Essential (primary) hypertension SNOMED: 28215000 (5) HX: breast cancer ICD Codes: Z85.3 - Personal history of malignant neoplasm of breast SNOMED: 449317405 c/o either rectal bleed Vs vaginal bleed treat for hemorrhoids Sitz bath and Anusol SENIOR QA ENGINEER referral recommended Avelino Tovar MD Oct 21, 2020 12:16
== END 2020-10-21 12:57 | disposition home or self-care (01) ==
LOC: PAN 10:57
DX: K52.9 Noninfective gastroenteritis and colitis, unspecified (principal); K64.9 Unspecified hemorrhoids; E11.9 Type 2 diabetes mellitus without complications; I10 Essential (primary) hypertension; Z85.3 Personal history of malignant neoplasm of breast; Z88.0 Allergy status to penicillin
CPT/HCPCS: 99212